=== PATIENT | male | born 1965 | race Caucasian/White ===

== ENCOUNTER 2022-08-08 04:25 | Emergency (ER) | payer OTHER ==
[2022-08-08 04:30] VITALS: BP 129/87; PULSE 74; RESP 18; TEMP 98
[2022-08-08] MEDS ORDERED: LIDOCAINE 1% INJ 10MG/ML (20 ML MDV) SQ STA (04:57)
[2022-08-08] MEDS ORDERED: LEVOFLOXACIN 500 MG TAB PO STA (04:57)
--- NOTE | 2022-08-08 06:05 | ED ---
Wound/Laceration HPI - General Chief Complaint: Wound/Laceration Stated Complaint: Fall, Right Ear Laceration Time Seen by Provider: 08/08/22 04:54 Source: patient Mode of arrival: wheelchair Limitations: no limitations - History of Present Illness Initial Comments: This patient is 57-year-old man presenting to have evaluation for right ear injury. The patient had fallen and his ear struck the edge of a counter. Patient noted bleeding and laceration. Denies significant pain. States he did not really strike his head there was no loss consciousness. No neck pain. States his last tetanus shot is up-to-date. -: minutes(s) Location: other (Right ear) Place: home Patient Tetanus UTD: Yes Context: accidental Associated Symptoms: none - Related Data Previous Rx's Medication Instructions Recorded Erythromycin Ophth Oint [Romycin 1 applic RIGHT EYE QID #1 tube 10/01/15 Ophth Oint] Ciprofloxacin HCl [Cipro] 500 mg PO Q12HR #14 tablet 08/08/22 Allergies Allergy/AdvReac Type Severity Reaction Status Date / Time No Known Allergies Allergy Verified 08/08/22 04:29 Review of Systems ROS Statement: Those systems with pertinent positive or pertinent negative responses have been documented in the HPI. ROS Other: All systems not noted in ROS Statement are negative. Constitutional: Denies: fever, weakness Eyes: Denies: eye pain ENT: Denies: ear pain Respiratory: Denies: cough, dyspnea Cardiovascular: Denies: chest pain, palpitations, syncope Gastrointestinal: Denies: vomiting Skin: Reports: as per HPI (Laceration) Neurological: Denies: weakness, numbness Hematological/Lymphatic: Denies: easy bleeding Past Medical History Additional Past Medical History / Comment(s): kidney stone, bronchitis History of Any Multi-Drug Resistant Organisms: None Reported Past Surgical History: Orthopedic Surgery Past Psychological History: No Psychological Hx Reported Smoking Status: Current every day smoker Past Alcohol Use History: Occasional Past Drug Use History: Marijuana General Exam Limitations: no limitations General appearance: alert, in no apparent distress, appears intoxicated Head exam: Present: atraumatic, normocephalic Eye exam: Present: normal appearance ENT exam: Present: TM's normal bilaterally, other (Laceration to the right ear, little linear, approximately 3 cm in length. No significant injury to the underlying cartilage. The external auditory canal is clear no TM injury) Neck exam: Present: normal inspection, full ROM. Absent: tenderness Neurological exam: Present: alert, oriented X3, CN II-XII intact Skin exam: Present: warm, dry, intact, normal color. Absent: rash Course Vital Signs 08/08/22 04:28 Temperature 98 F Pulse Rate 74 Respiratory 18 Rate Blood Pressure 129/87 O2 Sat by Pulse 94 L Oximetry Procedures - Laceration Laceration #1 Consent Obtained: verbal consent Indication: laceration Site: other Size (cm): 3 Description: flap Depth: simple, single layer Anesthetic Used: lidocaine 1% Anesthesia Technique: local infiltration Pre-repair: irrigated extensively Type of Sutures: nylon Size of Sutures: 6-0 Number of Sutures: 9 Technique: simple, interrupted Disposition Clinical Impression: Laceration Disposition: HOME SELF-CARE Condition: Good Instructions (If sedation given, give patient instructions): Laceration (ED) Prescriptions: Ciprofloxacin HCl [Cipro] 500 mg PO Q12HR #14 tablet Is patient prescribed a controlled substance at d/c from ED?: No Referrals: Cheng Cagle DO [Primary Care Provider] - 1-2 days Hemant Da Silva DO [Doctor of Osteopathic Medicine] - 1-2 days
[2022-08-08] MEDS ORDERED: BACITRACIN OINT 1 EACH PACKET TOPICAL ONE (06:06)
== END 2022-08-08 06:26 | disposition home or self-care (01) ==
LOC: EC 04:25
DX: S01.311A Laceration without foreign body of right ear, initial encounter (principal); F17.200 Nicotine dependence, unspecified, uncomplicated; W18.09XA Striking against other object with subsequent fall, initial encounter; Y92.009 Unspecified place in unspecified non-institutional (private) residence as the place of occurrence of the external cause
CPT/HCPCS: 99283; 12013; J2001